=== PATIENT | female | born 1995 | race African-American/Black ===

== ENCOUNTER 2018-06-23 21:01 | Emergency (ER) | payer SELFPAY ==
[~2018-06-23] VITALS: Ht 165.1 cm; Wt 109.0 kg
[2018-06-23 21:20] VITALS: BP 160/92
== END 2018-06-24 | disposition left against medical advice (07) ==
LOC: ER 21:01
DX: Z53.21 Procedure and treatment not carried out due to patient leaving prior to being seen by health care provider (principal)